=== PATIENT | male | born 1960 | race African-American/Black ===

== ENCOUNTER 2019-08-27 19:36 | Emergency (ER) | payer BC, OTHER ==
[2019-08-27 19:55] VITALS: BP 114/70; PULSE 82; TEMP 101; BMI 44.6
--- NOTE | 2019-08-27 22:56 | PDOC ---
History of Present Illness - General Chief Complaint: Cold Symptoms Stated Complaint: FLU LIKE SYMPTOMS History Source: Patient Exam Limitations: No Limitations - History of Present Illness Initial Comments: 08/27/19 23:00 HISTORY OF PRESENT ILLNESS: 59-year-old male denies medical history presents emergency department for evaluation of cough and fever for the past 2 days. Patient reports his 4-year-old son is been coughing, had a fever, having body aches and sore throat for the past 2 days as well. Patient denies any sore throat or body aches. He denies any chest pain or shortness of breath. Patient denies nausea and vomiting. No recent travel or sick contacts. PAST MEDICAL HISTORY: Denies past medical history SURGICAL HISTORY: Denies ALLERGIES: No known drug allergies REVIEW OF SYSTEMS General/Constitutional: Denies fever or chills. Denies weakness, weight change. HEENT: Denies change in vision. Denies ear pain or discharge. Denies sore throat. Cardiovascular: Denies chest pain or shortness of breath. Respiratory: See HPI Gastrointestinal: Denies nausea, vomiting, diarrhea or constipation. Denies rectal bleeding. Genitourinary: Denies dysuria, frequency, or change in urination. Musculoskeletal: Denies joint or muscle swelling or pain. Denies neck or back pain. Skin and breasts: Denies rash or easy bruising. Neurologic: Denies headache, vertigo, loss of consciousness, or loss of sensation. Psychiatric: Denies depression or anxiety. Endocrine: Denies increased thirst. Denies abnormal weight change. Hematologic/Lymphatic: Denies anemia, easy bleeding, or history of blood clots. Allergic/Immunologic: Denies hives or skin allergy. Denies latex allergy. PHYSICAL EXAM General Appearance: Well-appearing, appropriately dressed. No apparent distress , no intoxication. HEENT: EOMI, PERRLA, normal ENT inspection, normal voice, TMs normal, pharynx normal. No conjunctival pallor. No photophobia, scleral icterus. Neck: Supple. Trachea midline. No tenderness, rigidity, carotid bruit, stridor , lymphadenopathy, or thyromegaly. Respiratory/Chest: Lungs CTAB. No shortness of breath, chest tenderness, respiratory distress, accessory muscle use. No crackles, rales, rhonchi, stridor , wheezing, dullness Cardiovascular: RRR. S1, S2. No JVD, murmur, bradycardia, tachycardia. Gastrointestinal/Abdominal: Normal bowel sounds. Abdomen soft, non-distended. No tenderness or rebound tenderness. No organomegaly, pulsatile mass, guarding, hernia, hepatomegaly, splenomegaly. Past History - Past Medical History Allergies/Adverse Reactions: Allergies Allergy/AdvReac Type Severity Reaction Status Date / Time No Known Allergies Allergy Verified 06/12/15 11:18 Home Medications: Ambulatory Orders levoFLOXacin [Levaquin -] 750 mg PO DAILY@0600 #10 tablet 06/15/15 Oseltamivir Phosphate [Tamiflu -] 75 mg PO BID #10 capsule 08/27/19 Anemia: No Asthma: No COPD: No - Psycho Social/Smoking Cessation Hx Smoking History: Never smoked Have you smoked in the past 12 months: Yes Cigars Per Day: 2 'Breaking Loose' booklet given: 06/12/15 Hx Alcohol Use: No Drug/Substance Use Hx: No Substance Use Type: None Hx Substance Use Treatment: No *Physical Exam - Vital Signs Last Vital Signs Temp Pulse Resp BP Pulse Ox 101.0 F H 82 19 114/70 97 08/27/19 19:51 08/27/19 19:51 08/27/19 19:51 08/27/19 19:51 08/27/19 19:51 ED Treatment Course - RADIOLOGY Radiology Studies Ordered: Category Date Time Status CHEST PA & LAT [RAD] Stat Radiology 08/27/19 22:04 Taken Medical Decision Making - Medical Decision Making 08/27/19 22:59 A/P: 59-year-old male with fever and cough for the past 2 days. Lungs are clear to auscultation bilaterally No adventitious breath sounds noted Since his 4-year-old son is been experiencing similar symptoms I will check for influenza but given patient's age and absence of other influenza symptoms I will get a chest x-ray to rule out pneumonia. Chest x-ray as read by me: Angles clear. Cardiac silhouette is within normal limits. Prominent aorta noted. No focal infiltrates or consolidations noted. No significant change from exam performed 07/09/2015 Influenza A positive Discharge home with prescription for Tamiflu and instructions for symptomatic treatment. I discussed the physical exam findings, ancillary test results and final diagnoses with the patient. I answered all of the patient's questions. The patient was satisfied with the care received and felt comfortable with the discharge plan and treatment plan. The patient will call their primary care physician within 24 hours to arrange follow-up and will return to the Emergency Department with any new, persistent or worsening symptoms. Discharge - Discharge Information Problems reviewed: Yes Clinical Impression/Diagnosis: Influenza A Condition: Stable Disposition: HOME - Admission No - Additional Discharge Information Prescriptions: Oseltamivir Phosphate [Tamiflu -] 75 mg PO BID #10 capsule - Follow up/Referral - Patient Discharge Instructions Additional Instructions: Rest, drink lots of fluids: Teas, water, soups, Pedialyte Saltwater gargles Steamy showers/seem to face break up mucus Old-fashioned treatments help! Avoid contact with others until fevers and cough resolved as this is very contagious Lots of handwashing and good hygiene Continue [id number] medications for symptomatic relief Tylenol or Motrin for fever and pain Take all of Tamiflu as directed: 1 tab every 12 hours for 5 days Followup with private physician in one to 2 days as needed or if worsening Return to emergency department for worsened symptoms, fevers, dehydration Influenza takes between 5 and 7 days for resolution To not participate in any activity, work, or school until fevers and cough are gone for at least one day - Post Discharge Activity Work/Back to School Note: Back to Work
== END 2019-08-27 23:17 | disposition home or self-care (01) ==
LOC: JERFT 19:36
DX: J09.X2 Influenza due to identified novel influenza A virus with other respiratory manifestations (principal)
CPT/HCPCS: 71046-TC-FY; 87804; 99281-25

== ENCOUNTER 2019-10-30 20:24 | Emergency (ER) | payer OTHER ==
[2019-10-30 20:38] VITALS: TEMP 98.1; BMI 32.1
[2019-10-30] MEDS ORDERED: diphenhydrAMINE HCL 25 MG CAPSULE (FP) PO ONE (22:20)
--- NOTE | 2019-10-30 22:22 | PDOC ---
History of Present Illness - General Chief Complaint: Foreign Body (FB) Stated Complaint: PAIN Time Seen by Provider: 10/30/19 22:02 History Source: Patient Exam Limitations: No Limitations - History of Present Illness Initial Comments: 10/30/19 22:26 59 yo male no sig medical hx presents to the ED with a feeling of food stuck in his throat. Pt states he was eating approx 1.5 hours ago, chicken wings and celery, staters shortly after eating celery his throat became itchy, felt short of breath and as though his throat was closing. Pt denies hx of allergies but states after eating fruits and celery in the past, similar rxns have occurred. Pt never seen an defensive line coach, has not taken any new medications, denies drooling, denies current SOB, denies swelling of his lips or tongue, denies new rash, denies CP, abdominal pain, back pain, F/C/N/V, changes in bowel or bladder habits. Pt never seen GI or had an EGD before. Past History - Past Medical History Allergies/Adverse Reactions: Allergies Allergy/AdvReac Type Severity Reaction Status Date / Time No Known Allergies Allergy Verified 10/30/19 20:35 Home Medications: Ambulatory Orders levoFLOXacin [Levaquin -] 750 mg PO DAILY@0600 #10 tablet 06/15/15 Oseltamivir Phosphate [Tamiflu -] 75 mg PO BID #10 capsule 08/27/19 Diphenhydramine HCl [Benadryl -] 25 mg PO Q8H #21 capsule 10/31/19 EPINEPHrine (EPI-PEN 0.3MG) [Epipen 0.3MG -] 0.3 mg IM ASDIR #2 pens 10/31/19 Anemia: No Asthma: No COPD: No - Immunization History Immunization Up to Date: No - Psycho Social/Smoking Cessation Hx Smoking History: Never smoked Have you smoked in the past 12 months: Yes Cigars Per Day: 2 'Breaking Loose' booklet given: 06/12/15 Hx Alcohol Use: No Drug/Substance Use Hx: No Substance Use Type: None Hx Substance Use Treatment: No Review of Systems - Review of Systems Constitutional: Yes: See HPI HEENTM: Yes: See HPI Respiratory: Yes: See HPI Cardiac (ROS): Yes: See HPI ABD/GI: Yes: See HPI : Yes: See HPI Musculoskeletal: Yes: See HPI Integumentary: Yes: See HPI Neurological: Yes: See HPI *Physical Exam - Vital Signs Last Vital Signs Temp Pulse Resp BP Pulse Ox 98.1 F 81 20 125/86 100 10/30/19 20:36 10/30/19 20:36 10/30/19 20:36 10/30/19 20:36 10/30/19 20:36 - Physical Exam General Appearance: Yes: Nourished, Appropriately Dressed. No: Apparent Distress HEENT: positive: EOMI Neck: positive: Supple. negative: Carotid bruit, Stridor, Tender midline Respiratory/Chest: positive: Lungs Clear, Normal Breath Sounds. negative: Respiratory Distress, Accessory Muscle Use, Rapid RR, Crackles, Rales, Rhonchi, Stridor, Wheezing Cardiovascular: positive: Regular Rhythm, Regular Rate, S1, S2. negative: Edema , JVD, Murmur Vascular Pulses: Dorsalis-Pedis (R): 4+, Doralis-Pedis (L): 4+ Gastrointestinal/Abdominal: positive: Flat, Soft. negative: Pulsatile Mass, Protuberent, Distended, Guarding, Rebound, Tenderness Musculoskeletal: negative: CVA Tenderness Medical Decision Making - Medical Decision Making 10/30/19 22:48 59 yo male no sig medical hx presents to the ED with a feeling of food stuck in his throat. Pt states he was eating approx 1.5 hours ago, chicken wings and celery, staters shortly after eating celery his throat became itchy, felt short of breath and as though his throat was closing. Pt denies hx of allergies but states after eating fruits and celery in the past, similar rxns have occurred. Pt never seen an defensive line coach, has not taken any new medications, denies drooling, denies current SOB, denies swelling of his lips or tongue, denies new rash, denies CP, abdominal pain, back pain, F/C/N/V, changes in bowel or bladder habits. Pt never seen GI or had an EGD before. vitals WNL No tongue/lip or uvula swelling or deviation. Pt tolerating secretions and does not have stridor after 50 mg benadryl pt symptoms resolve Will prescribe EPI pen to pt, given strict return precautions for anaphylaxis, give defensive line coach F/U and strict instructions on not eating celery or fruits until pt clears it with the defensive line coach 10/30/19 23:03 Pt states his arms are itchy now, decadron 10 mg given. Will watch to ensure no new symptoms Pt observed in the ED, no return of symptoms safer for DC home Discharge - Discharge Information Problems reviewed: Yes Clinical Impression/Diagnosis: Allergy, Anaphylactic reaction Condition: Stable Disposition: HOME - Admission No - Additional Discharge Information Prescriptions: Diphenhydramine HCl [Benadryl -] 25 mg PO Q8H #21 capsule EPINEPHrine (EPI-PEN 0.3MG) [Epipen 0.3MG -] 0.3 mg IM ASDIR #2 pens - Follow up/Referral Referrals: Mike Cid MD [Staff Physician] - - Patient Discharge Instructions Patient Printed Discharge Instructions: DI for Anaphylaxis Additional Instructions: Please call to make an appointment with the [employer] Operator referred to you within the next 48 hours. See your Primary Doctor within the next 48 hours. Do not eat any fruits or celery until clearing this with the defensive line coach. Use the EPI pen as discussed and return to the ER for similar symptoms immediately after giving yourself an injection. THank you - Post Discharge Activity
--- NOTE | 2019-10-30 22:47 | PDOC ---
Attending Attestation - Resident Resident Name: Gen Mccarthy - ED Attending Attestation I have performed the following: I have examined & evaluated the patient, The case was reviewed & discussed with the resident, I agree w/resident's findings & plan, Exceptions are as noted - HPI HPI: 10/30/19 22:47 59-year-old male developed a scratchy throat after eating celery. He has had prior experiences with this. - Physicial Exam PE: 10/30/19 23:04 Well-nourished well-developed 59-year-old male seated in vertical with complaint of some itching following eating celery. Head normocephalic atraumatic Oral exam uvula is midline, there is no lip swelling Neck is supple Lungs are clear to auscultation CVS regular rate rhythm S1-S2 Abdomen is protuberant but nontender Skin he has pruritus and is scratching his extremities, no wheals appreciated Extremities no edema Neuro alert and oriented x3, ambulatory, no gross focal neuro deficits - Medical Decision Making 10/30/19 22:47 Patient was given Benadryl , steroids and his symptoms resolved No tripoding, able to handle his oral secretions 10/30/19 23:09 Patient presents with a history of food allergies, celery with local itching in his throat and on his skin No anaphylaxis Speech is clear, no hot potato voice Patient will be discharged home with RX for Epi pens
[2019-10-30] MEDS ORDERED: DEXAMETHASONE SOD PHOSPHATE 10 MG/1 ML VIAL IM ONE (23:02)
[2019-10-30] MEDS ORDERED: DEXAMETHASONE SOD PHOSPHATE 10 MG/1 ML VIAL ONE (23:41)
[2019-10-31 00:28] VITALS: BP 128/78; PULSE 80
== END 2019-10-31 00:28 | disposition home or self-care (01) ==
LOC: JER 20:24
PROC: 3E0233Z Introduction of Anti-inflammatory into Muscle, Percutaneous Approach (ICD-10-PCS; principal; 2019-10-30)
DX: T78.2XXA Anaphylactic shock, unspecified, initial encounter (principal); Z91.018 Allergy to other foods; X58.XXXA Exposure to other specified factors, initial encounter
CPT/HCPCS: 99283-25; J1100

== ENCOUNTER 2020-07-18 23:56 | Emergency (ER) | payer OTHER ==
[2020-07-19 00:11] VITALS: BP 150/98; PULSE 89; TEMP 98.9; BMI 36.2
== END 2020-07-19 01:35 | disposition home or self-care (01) ==
LOC: JER 23:56
DX: R09.89 Other specified symptoms and signs involving the circulatory and respiratory systems (principal)
CPT/HCPCS: 99283-25

== ENCOUNTER 2021-02-01 22:05 | Inpatient (IN) | payer OTHER ==
[2021-02-01] MEDS ORDERED: SODIUM CHLORIDE 2,994 ML IV ONE (22:43)
[2021-02-01] MEDS ORDERED: ACETAMINOPHEN 1000 MG/100 ML VIAL (NON FORMULARY) IVPB ONE (22:44)
[2021-02-01] MEDS ORDERED: ACETAMINOPHEN INJECTION 100 ML IVPB ONE (22:48)
[2021-02-01] MEDS ORDERED: SODIUM CHLORIDE 0.9% 500 ML INFUS.BAG IV ONE (23:00)
[2021-02-01 23:17] LABS: BASO % 0.5 % (0-2.0); EOS % 0.2 % (0-4.5); HEMATOCRIT 37.4 % (35.4-49); HEMOGLOBIN 12.7 GM/dL (11.7-16.9); LYMPH % 5.8 % (8-40); MCH 31.3 pg (25.7-33.7); MCHC 33.9 g/dl (32.0-35.9); MEAN CELL VOLUME 92.2 fl (80-96); MEAN PLT VOLUME 8.8 fl (7.5-11.1); MONO % 6.2 % (3.8-10.2); NEUT % 87.3 % (42.8-82.8); PLATELET COUNT 229 K/MM3 (134-434); RBC 4.06 M/mm3 (4.00-5.60); RDW 14.6 % (11.9-15.9); WHITE BLOOD COUNT 8.9 K/mm3 (4.0-10.0)
[2021-02-01 23:28] LABS: VENOUS PCO2 38.6 mmHg (38-52); VENOUS PH 7.418 (7.310-7.410)
[2021-02-02 01:31] LABS: LACTIC ACID 2.1 mmol/L (0.4-2.0)
[2021-02-02 02:27] LABS: INR 1.02 (0.83-1.09); PROTHROMBIN TIME (PATIENT) 12.5 SEC (9.7-13.0)
[2021-02-02 02:30] LABS: CALCIUM 8.4 mg/dL (8.5-10.1)
[2021-02-02 02:32] LABS: BLOOD UREA NITROGEN 12.3 mg/dL (7-18)
[2021-02-02] MEDS ORDERED: IBUPROFEN 600 MG TABLET (FP) PO ONE ×2 (02:42→02:57)
[2021-02-02 02:51] LABS: CREATININE 1.3 mg/dL (0.55-1.3)
[2021-02-02] MEDS ORDERED: ACETAMINOPHEN 325 MG TABLET (FP) PO PRN (05:53)
[2021-02-02] MEDS ORDERED: CEFTRIAXONE 1 GM in DEXTROSE 5%-WATER - 50 ML IVPB SCH (05:59)
[2021-02-02] MEDS ORDERED: PREMIXED IVPB SCH (07:00)
[2021-02-02] MEDS ORDERED: METRONIDAZOLE 500 MG IVPB SCH (07:00)
[2021-02-02] MEDS: SODIUM CHLORIDE 1,000 ML IV SCH (08:00)
[2021-02-02] MEDS ORDERED: CEFTRIAXONE 1 GM/50 ML BAG ONE (08:09)
[2021-02-02 08:24] LABS: BASO % 0.7 % (0-2.0); HEMATOCRIT 36.4 % (35.4-49); HEMOGLOBIN 12.3 GM/dL (11.7-16.9); LYMPH % 12.1 % (8-40); MCHC 33.9 g/dl (32.0-35.9); MEAN CELL VOLUME 91.2 fl (80-96); MEAN PLT VOLUME 8.6 fl (7.5-11.1); MONO % 9.3 % (3.8-10.2); NEUT % 76.9 % (42.8-82.8); PLATELET COUNT 233 K/MM3 (134-434); RBC 3.99 M/mm3 (4.00-5.60); RDW 13.7 % (11.9-15.9); WHITE BLOOD COUNT 6.3 K/mm3 (4.0-10.0)
[2021-02-02] MEDS: CEFTRIAXONE 1 GM in DEXTROSE 5%-WATER - 50 ML IVPB SCH (08:30)
[2021-02-02 08:51] LABS: ALBUMIN 3.5 g/dl (3.4-5.0); BLOOD UREA NITROGEN 13.1 mg/dL (7-18)
[2021-02-02 08:55] LABS: BILIRUBIN,TOTAL 1.7 mg/dL (0.2-1); CREATININE 1.2 mg/dL (0.55-1.3); PHOSPHOROUS 3.6 mg/dL (2.5-4.9)
[2021-02-02 09:10] LABS: TOT PROT 7.1 g/dl (6.4-8.2)
[2021-02-02] MEDS ORDERED: ENOXAPARIN NA (PORCINE) 40 MG/0.4 ML DISP.SYRIN SQ ONE (10:45)
[2021-02-02] MEDS: ENOXAPARIN NA (PORCINE) 40 MG/0.4 ML DISP.SYRIN SQ SCH (10:52)
[2021-02-02 12:11] LABS: EPI CELLS 24 /uL (0-25.1); HYALINE CASTS 4 /uL (0-3.1); URINE APPEARANCE CLEAR; URINE BACTERIA 90 /uL (0-1359); URINE BILIRUBIN NEGATIVE (NEGATIVE); URINE COLOR YELLOW; URINE GLUCOSE (UA) NEGATIVE (NEGATIVE); URINE KETONE NEGATIVE (NEGATIVE); URINE LEUK ESTERASE 1+ (NEGATIVE); URINE NITRITE NEGATIVE (NEGATIVE); URINE PROTEIN NEGATIVE (NEGATIVE); URINE RBC 7 /uL (0-23.9); URINE UROBILINOGEN 0.2 mg/dL (0.2-1.0); URINE WBC 117 /uL (0-25.8)
[2021-02-02 17:48] VITALS: BMI 29.5
[2021-02-03 08:57] LABS: BASO % 0.6 % (0-2.0); EOS % 3.3 % (0-4.5); HEMATOCRIT 34.2 % (35.4-49); HEMOGLOBIN 11.4 GM/dL (11.7-16.9); LYMPH % 22.1 % (8-40); MCHC 33.4 g/dl (32.0-35.9); MEAN CELL VOLUME 92.9 fl (80-96); MONO % 10.8 % (3.8-10.2); NEUT % 63.2 % (42.8-82.8); PLATELET COUNT 203 K/MM3 (134-434); RBC 3.68 M/mm3 (4.00-5.60); RDW 13.2 % (11.9-15.9); WHITE BLOOD COUNT 4.4 K/mm3 (4.0-10.0)
[2021-02-03] MEDS ORDERED: cefTRIAXone SODIUM 1 GM VIAL ONE (08:57)
[2021-02-03] MEDS ORDERED: DEXTROSE 5%-WATER - 50 ML IVPB ONE (08:57)
[2021-02-03] MEDS: CEFTRIAXONE 1 GM in DEXTROSE 5%-WATER - 50 ML IVPB SCH (09:00)
[2021-02-03] MEDS: SODIUM CHLORIDE 1,000 ML IV SCH (09:01)
[2021-02-03] MEDS: ENOXAPARIN NA (PORCINE) 40 MG/0.4 ML DISP.SYRIN SQ SCH (09:01)
[2021-02-03 09:16] LABS: ALBUMIN 2.9 g/dl (3.4-5.0); BLOOD UREA NITROGEN 7.6 mg/dL (7-18); CALCIUM 8.3 mg/dL (8.5-10.1)
[2021-02-03 09:20] LABS: TOT PROT 6.1 g/dl (6.4-8.2)
[2021-02-03 14:51] VITALS: BP 139/80; PULSE 74; TEMP 99.1
== END 2021-02-03 17:55 | disposition home or self-care (01) | DRG 872 ==
LOC: JER 22:05 → JERBED 02-02 03:38 → J6S 02-02 15:20
PROVIDERS: ADMIT Internal Medicine; ATTEND Internal Medicine
DX: A41.9 Sepsis, unspecified organism (principal); E87.2 Acidosis; K52.9 Noninfective gastroenteritis and colitis, unspecified; E78.5 Hyperlipidemia, unspecified; I11.9 Hypertensive heart disease without heart failure; E66.9 Obesity, unspecified; Z68.29 Body mass index [BMI] 29.0-29.9, adult; R94.31 Abnormal electrocardiogram [ECG] [EKG]
CPT/HCPCS: 36415; 71045-TC-FY; 74176-TC; 80048; 80053; 81003; 82803; 83605; 83735; 84100; 84484; 85025; 85610; 87040; 87045; 87046; 87086; 87205; 93005; 93010; 99285-25; C9803; J0131; U0003; U0005